=== PATIENT | male | born 1980 | race Caucasian/White ===

== ENCOUNTER 2016-07-28 19:29 | Emergency (ER) | payer BC ==
[~2016-07-28] VITALS: Ht 177.8 cm; Wt 98.9 kg
[2016-07-28 19:29] VITALS: BP 131/81
--- NOTE | 2016-07-28 19:53 | EKG ---
[address] [address] Test Date: 2016-07-28 Test Time: 19:51:07 Pat Name: SAMSON MILTON Department: Room: Gender: M [employer]: : 1980 Requested By: WILBERT AUGUST Order Number: [id number] Reading MD: Brennan De La Fuente Measurements Intervals [place] Rate: 113 P: 26 [place]: 166 QRS: 26 QRSD: 88 T: 15 QT: 292 QTc: 406 Interpretive Statements SINUS TACHYCARDIA Electronically Signed On 08-02-2016 14:03:30 CDT by Brennan De La Fuente
--- NOTE | 2016-07-28 19:53 | PHYS DOC ---
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 sensory modalities. 2 = Profound alphonse-inattention or extinction to more than one modality; does not recognize own hand or orients to only one side of space. NIHSS = 0 Problem Qualifiers WILBERT AUGUST MD July 28, 2016 19:53
[2016-07-28 20:07] LABS: BASO % 0 % (0-3); EOS % 0 % (0-3); HEMATOCRIT 39.5 % (39.0-53.0); HEMOGLOBIN 13.7 g/dL (13.0-17.5); LYMPH # 1.4 x10^3/uL (1.0-4.8); LYMPH % 11 % (24-48); MEAN CORPUSCULAR HEMOGLOBIN 32 pg (25-35); MEAN CORPUSCULAR HGB CONC 35 g/dL (31-37); MEAN CORPUSCULAR VOLUME 92 fL (79-100); MONO # 1.4 x10^3/uL (0.0-1.1); MONO % 11 % (0-9); NEUT # 9.5 x10^3uL (1.8-7.7); NEUT % 77 % (31-73); PLATELET COUNT 152 x10^3/uL (140-400); RED BLOOD COUNT 4.29 x10^6/uL (4.30-5.70); RED CELL DISTRIBUTION WIDTH 13.8 % (11.5-14.5); WHITE BLOOD COUNT 12.4 x10^3/uL (4.0-11.0)
[2016-07-28 20:15] LABS: ALBUMIN 3.8 g/dL (3.4-5.0); ALBUMIN/GLOBULIN RATIO 0.9 (1.0-1.7); CALCIUM 9.1 mg/dL (8.5-10.1); CREATININE 1.4 mg/dL (0.7-1.3); GFR 57.7; POTASSIUM 3.7 mmol/L (3.5-5.1); TOTAL BILIRUBIN 0.5 mg/dL (0.2-1.0)
[2016-07-28] MEDS ORDERED: IOHEXOL 300 MG/ML 75 ML VIAL. IV ONE (20:15)
[2016-07-28] MEDS ORDERED: IV NORMAL SALINE 1,000ML 1,000 ML IV ONE (20:30)
[2016-07-28] MEDS ORDERED: ACETAMINOPHEN 500 MG TABLET PO ONE (20:45)
[2016-07-28] MEDS ORDERED: IPRATRPIUM/ALBUTEROL 0.5/2.5MG 3 ML NEBU. ONE (21:06)
[2016-07-28] MEDS ORDERED: IPRATRPIUM/ALBUTEROL 0.5/2.5MG 3 ML NEBU. NEB ONE (21:15)
[2016-07-28 21:23] LABS: AMPHETAMINE/METHAMPHETAMINE NEG (NEG); BARBITURATES NEG (NEG); BENZODIAZEPINES NEG (NEG); CANNABINOIDS NEG (NEG); COCAINE NEG (NEG); METHADONE NEG (NEG); OPIATES NEG (NEG); PHENCYCLIDINE NEG (NEG)
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
[2016-07-28 21:32] LABS: BILIRUBIN,URINE NEG (NEG); CLARITY,URINE CLEAR; COLOR,URINE YELLOW; GLUCOSE,URINE NEG (NEG)
[2016-07-28 21:33] LABS: BACTERIA,URINE 0 /HPF (0-FEW); NITRITE,URINE NEG (NEG); SQUAMOUS EPITHELIAL CELL,UR OCC /LPF; UROBILINOGEN,URINE 1 mg/dL (0.2 mg/dL); WBC,URINE OCC /HPF (0-4)
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
[2016-07-28] MEDS ORDERED: ONDANSETRON PF 4 MG/2 ML VIAL. IV ONE (22:45)
[2016-07-28] MEDS ORDERED: MORPHINE SULFATE 2 MG/ML DISP.SYRIN. IM ONE (22:45)
[2016-07-28] MEDS ORDERED: AMOX1TAB61 PO (22:47)
[2016-07-28] MEDS ORDERED: META-21 PO (22:47)
[2016-07-28] MEDS ORDERED: ONDA4TAB10 PO (22:47)
[2016-07-28] MEDS ORDERED: cefTRIAXone SODIUM 1 GM VIAL IV ONE (22:52)
[2016-07-28] MEDS ORDERED: IV NORMAL SALINE 50ML 50 ML ONE (22:52)
== END 2016-07-28 23:20 | disposition home or self-care (01) ==
LOC: ER 19:29
DX: R55 Syncope and collapse (principal); J32.9 Chronic sinusitis, unspecified; M54.2 Cervicalgia; F17.210 Nicotine dependence, cigarettes, uncomplicated
CPT/HCPCS: 36415; 70450; 70498; 80053; 80305; 80320; 81001; 84484; 85027; 85610; 85730; 87040; 93005; 94640; 96361; 96365; 96372; 96375; 99285; J0696; J2270; J2405; J7620; Q9967; 96374; G0480; G0481; J7030